=== PATIENT | female | born 1975 | race Asian ===

== ENCOUNTER → 2017-03-27 | Outpatient (CLI) | payer BC ==
--- NOTE | 2017-03-27 14:54 | RADIOLOGY REPORT (SQ) ---
EXAM DESCRIPTION: CT PELVIS WITH COMPLETED DATE/TIME: 03/27/2017 2:22 pm REASON FOR STUDY: LEIOMYOMA OF UTERUS, UNSPECIFIED (D25.9), PELVIC AND PERINEAL PAIN (R10.2) D25.9 LEIOMYOMA OF UTERUS, UNSPECIFIED R10.2 PELVIC AND PERINEAL PAIN COMPARISON: None. TECHNIQUE: CT scan of the pelvis performed with intravenous contrast. No oral contrast. Images rev iewed with soft tissue and bone windows. Reconstructed coronal and sagittal MPR images reviewed. Al l images stored on PACS. Patient was injected with 49 mL of Isovue 370 contrast. Renal function studies not required, patient less than 50 years old[address] scanners at this facility use dose modulation, iterative reconstruction, and/or weight based d osing when appropriate to reduce radiation dose to as low as reasonably achievable (ALARA). [facility]: Dose Right [facility]: CareDose [facility]: Dose Right [facility]: Teradose 4D [facility]: AvePoint RADIATION DOSE: Up-to-date CT equipment and radiation dose reduction techniques were employed. CTDIv ol: 2.1 - 2.4 mGy. DLP: 138 mGy-cm. mGy. LIMITATIONS: No oral contrast Urinary bladder near completely decompressed. FINDINGS: PELVIC SOFT TISSUES: Uterus measures 7.5 x 5.5 x 4.5 cm in size. A 2 cm midline fundal fi broid is present, a 2 cm uterine body dorsal fibroid is present. Endometrial stripe less than 5 mm i n thickness. Right ovary 3 x 2.4 cm in size. Left ovary 3 x 1.7 cm in size with a 12 mm cyst. No free pelvic cul-de-sac fluid. No adenopathy. Pelvic bowel loops are unremarkable. Appendix not in the field of view. Distal ureters unremarkable. Urinary bladder is near completely decompressed. PELVIC BONES: No acute fracture. No worrisome bone lesions. VISUALIZED SPINE: No acute findings. HIPS: No acute fracture or dislocation. No worrisome bone lesions. EXTRAPELVIC SOFT TISSUES: No significant findings. OTHER: No other significant finding. IMPRESSION: Uterine fibroids. Otherwise unremarkable study. TECHNICAL DOCUMENTATION: JOB ID: [id number] Quality ID # [id number]: Final reports with documentation of one or more dose reduction techniques (e.g., Au tomated exposure control, adjustment of the mA and/or kV according to patient size, use of iterative reconstruction technique) 2010 [employer]- All Rights Reserved
== END ==
LOC: RAD 13:26
PROVIDERS: ATTEND Advanced Practice Midwife
DX: D25.9 Leiomyoma of uterus, unspecified (principal); R10.2 Pelvic and perineal pain
CPT/HCPCS: 72193